=== PATIENT | male | born 1950 | race Caucasian/White ===

== ENCOUNTER 2021-12-19 18:59 | Observation (INO) ==
[2021-12-19 21:37] LABS: Basophils % 0.2 %; Eosinophils # 0.6 K/mcL (0.0-0.6); Eosinophils % 4.4 %; Hematocrit 39.2 % (37.5-50.1); Hemoglobin 12.9 g/dL (12.9-16.9); Immature Granulocytes % 1.1 % (0-4); Lymphocytes # 0.9 K/mcL (0.6-4.6); Lymphocytes % 7.4 %; Mean Corpuscular HGB Conc 32.9 g/dL (31.6-35.5); Mean Corpuscular Hemoglobin 30.4 pg (28.0-33.3); Mean Corpuscular Volume 92.5 fL (83.0-100.0); Mean Platelet Volume 10.1 fL (9.4-12.4); Monocytes # 0.8 K/mcL (0.0-1.3); Neutrophils # 10.2 K/mcL (1.6-8.9); Nucleated Red Blood Cells 0.6 /100 WBC (0); Platelet Count 309 K/mcL (140-400); Red Blood Count 4.24 M/mcL (4.19-5.50); Red Cell Distribution Width 15.9 % (11.5-14.5); Segmented Neutrophils % 80.9 %; White Blood Count 12.6 K/mcL (4.3-11.1)
[2021-12-19 21:55] LABS: Alanine Aminotransferase 16 Units/L (7-52); Albumin/Globulin Ratio 1.5 (1.1-2.2); Alkaline Phosphatase 51 Units/L (34-104); Aspartate Amino Transferase 17 Units/L (13-39); BUN/Creatinine Ratio 24 (6-26); Bilirubin,Total 0.2 mg/dL (0.3-1.0); Blood Urea Nitrogen 33 mg/dL (8-23); Calcium 9.6 mg/dL (8.6-10.3); Carbon Dioxide 19 mEq/L (23-29); Chloride 113 mEq/L (98-107); Globulin 2.7 g/dL (2.4-3.5); Glucose 100 mg/dL (70-105); Osmolality,Calculated 295 (280-300); Potassium 3.7 mEq/L (3.5-5.1); Sodium 139 mEq/L (136-145); Total Protein 6.7 g/dL (6.4-8.9); eGFR For African Americans > 60 (> 60); eGFR For Non-African Americans 50 (> 60)
[2021-12-19] MEDS ORDERED: *HR* HYDROcodone/Acet 5/325 mg TABLET PO PRN (23:04)
[2021-12-19] MEDS ORDERED: Melatonin 3 MG TABLET PO PRN (23:04)
[2021-12-19] MEDS ORDERED: *HR* OxyCODONE Immed Rel 5 MG TABLET PO PRN (23:04)
[2021-12-19] MEDS ORDERED: Naloxone 0.4 MG/ML INJ IVP PRN (23:04)
[2021-12-19] MEDS ORDERED: Ondansetron ODT 4 MG TAB.RAPDIS SL PRN (23:04)
[2021-12-19] MEDS ORDERED: Acetaminophen 325 MG TABLET PO PRN (23:04)
[2021-12-20 04:01] LABS: Alanine Aminotransferase 15 Units/L (7-52); Albumin 3.7 g/dL (3.5-5.7); Albumin/Globulin Ratio 1.5 (1.1-2.2); Alkaline Phosphatase 46 Units/L (34-104); Aspartate Amino Transferase 15 Units/L (13-39); BUN/Creatinine Ratio 24 (6-26); Bilirubin,Total 0.3 mg/dL (0.3-1.0); Blood Urea Nitrogen 30 mg/dL (8-23); Calcium 9.5 mg/dL (8.6-10.3); Carbon Dioxide 17 mEq/L (23-29); Chloride 115 mEq/L (98-107); Globulin 2.4 g/dL (2.4-3.5); Glucose 87 mg/dL (70-105); Magnesium 1.7 mg/dL (1.6-2.6); Osmolality,Calculated 294 (280-300); Phosphorous 3.3 mg/dL (2.7-4.5); Potassium 3.6 mEq/L (3.5-5.1); Sodium 139 mEq/L (136-145); Total Protein 6.1 g/dL (6.4-8.9); eGFR For African Americans > 60 (> 60); eGFR For Non-African Americans 56 (> 60)
[2021-12-20 04:05] LABS: Basophils # 0.1 K/mcL (0.0-0.2); Basophils % 0.4 %; Eosinophils # 0.7 K/mcL (0.0-0.6); Eosinophils % 6.1 %; Hematocrit 34.9 % (37.5-50.1); Hemoglobin 11.9 g/dL (12.9-16.9); Immature Granulocytes % 1.1 % (0-4); Lymphocytes # 1.6 K/mcL (0.6-4.6); Lymphocytes % 12.9 %; Mean Corpuscular HGB Conc 34.1 g/dL (31.6-35.5); Mean Corpuscular Hemoglobin 31.4 pg (28.0-33.3); Mean Corpuscular Volume 92.1 fL (83.0-100.0); Mean Platelet Volume 10.9 fL (9.4-12.4); Monocytes # 1.1 K/mcL (0.0-1.3); Monocytes % 9.1 %; Neutrophils # 8.6 K/mcL (1.6-8.9); Nucleated Red Blood Cells 0.7 /100 WBC (0); Platelet Count 324 K/mcL (140-400); Red Blood Count 3.79 M/mcL (4.19-5.50); Red Cell Distribution Width 15.8 % (11.5-14.5); Segmented Neutrophils % 70.4 %; White Blood Count 12.2 K/mcL (4.3-11.1)
[2021-12-20] MEDS ORDERED: Finasteride 5 MG TABLET PO SCH (09:00)
[2021-12-20] MEDS ORDERED: Aspirin Enteric Coated 81 MG Tablet PO SCH (09:00)
[2021-12-20 11:35] VITALS: BP 132/85; PULSE 67; TEMP 97.8; O2SAT 96
[2021-12-20 12:55] LABS: Bacteria,Urine Few per hpf (None-Few); Bilirubin,Urine Negative (Negative); Blood,Urine Large (Negative); Clarity,Urine Turbid (Clear); Color,Urine Colorless (Yellow); Glucose,Urine (UA) Normal (Normal); Ketones,Urine Negative (Negative); Leukocyte Esterase,Urine Small (Negative); Mucus,Urine Few per lpf (None-Few); Nitrite,Urine Negative (Negative); Protein,Urine 50 mg/dL (Neg-Trace); RBC,Urine TNTC per hpf (0-3); Specific Gravity,Urine 1.011 (1.010-1.025); Urobilinogen,Urine Normal (Normal); WBC,Urine 15-30 per hpf (0-3)
[2021-12-20] MEDS ORDERED: Triamcinolone Acet 0.1% CRM 15 GM TUBE TP PRN (13:07)
[2021-12-20] MEDS ORDERED: Cefdinir 300 MG CAPSULE PO ONE (15:33)
[2021-12-20] MEDS ORDERED: Melatonin 3 MG TABLET PO SCH (21:00)
[2021-12-21] MEDS ORDERED: Nicotine 21 MG PATCH.TD24 TD SCH (09:00)
== END 2021-12-20 15:55 | disposition home or self-care (01) ==
LOC: 3ANU 18:59 → EMEROOARM 18:59 → SUATTDRO 23:36 → 3ANU 12-20 00:17
PROVIDERS: ADMIT Family Medicine; ATTEND Internal Medicine

== ENCOUNTER 2022-06-08 14:41 | Inpatient (IN) ==
[2022-06-08 18:49] LABS: Basophils % 1.1 %; Eosinophils # 0.5 K/mcL (0.0-0.6); Eosinophils % 3.8 %; Hemoglobin 10.7 g/dL (12.9-16.9); Immature Granulocytes % 1.3 % (0-4); Lymphocytes # 0.9 K/mcL (0.6-4.6); Lymphocytes % 6.8 %; Mean Corpuscular HGB Conc 34.5 g/dL (31.6-35.5); Mean Corpuscular Hemoglobin 28.1 pg (28.0-33.3); Mean Corpuscular Volume 81.4 fL (83.0-100.0); Mean Platelet Volume 11.8 fL (9.4-12.4); Monocytes # 1.7 K/mcL (0.0-1.3); Monocytes % 13.1 %; Neutrophils # 9.8 K/mcL (1.6-8.9); Nucleated Red Blood Cells 0.8 /100 WBC (0); Platelet Count 456 K/mcL (140-400); Red Blood Count 3.81 M/mcL (4.19-5.50); Red Cell Distribution Width 23.5 % (11.5-14.5); Segmented Neutrophils % 73.9 %; White Blood Count 13.3 K/mcL (4.3-11.1)
[2022-06-08 18:52] LABS: Basophils # 0.2 K/mcL (0.0-0.2)
[2022-06-08 19:26] LABS: Anisocytosis 1+ (Not Present); Hypochromasia Present (Not Present); Polychromasia 1+ (Not Present); Stomatocytes 2+ (Not Present)
[2022-06-08 19:28] LABS: Platelet Estimate Normal (Normal)
[2022-06-08 19:35] LABS: Alanine Aminotransferase 349 Units/L (7-52); Albumin 3.4 g/dL (3.5-5.7); Albumin/Globulin Ratio 0.9 (1.1-2.2); Alkaline Phosphatase 1120 Units/L (34-104); Aspartate Amino Transferase 610 Units/L (13-39); BUN/Creatinine Ratio 15 (6-26); Bilirubin,Direct 3.9 mg/dL (0.0-0.2); Bilirubin,Indirect 2.8 mg/dL (0.0-1.0); Bilirubin,Total 6.7 mg/dL (0.3-1.0); Blood Urea Nitrogen 19 mg/dL (8-23); Calcium 9.5 mg/dL (8.6-10.3); Carbon Dioxide 17 mEq/L (23-29); Chloride 108 mEq/L (98-107); Globulin 3.7 g/dL (2.4-3.5); Glucose 117 mg/dL (70-105); Lipase 245 Units/L (11-82); Osmolality,Calculated 287 (280-300); Potassium 3.2 mEq/L (3.5-5.1); Sodium 137 mEq/L (136-145); Total Protein 7.1 g/dL (6.4-8.9); Troponin I 0.08 ng/mL (< 0.04); eGFR For African Americans > 60 (> 60); eGFR For Non-African Americans 57 (> 60)
[2022-06-08] MEDS ORDERED: Iopamidol - 370 500 ML MLS IVP ONE (19:51)
[2022-06-08 19:57] LABS: Amorphous Sediment,Urine Few per hpf (None-Few); Bacteria,Urine Few per hpf (None-Few); Bilirubin,Urine Small (Negative); Blood,Urine Large (Negative); Clarity,Urine Turbid (Clear); Color,Urine Dark-Yellow (Yellow); Glucose,Urine (UA) Normal (Normal); Ketones,Urine Negative (Negative); Leukocyte Esterase,Urine Negative (Negative); Mucus,Urine Few per lpf (None-Few); Nitrite,Urine Negative (Negative); Protein,Urine 100 mg/dL (Neg-Trace); RBC,Urine 0-3 per hpf (0-3); Specific Gravity,Urine 1.021 (1.010-1.025)
[2022-06-08 20:51] LABS: INR 1.3; Prothrombin Time 14.3 Seconds (9.4-12.1)
[2022-06-08 20:54] LABS: Activated Partial Thrombo Time 34.4 Seconds (26.0-36.0)
[2022-06-08] MEDS ORDERED: cefTRIAXone 1,000 MG in Water for inj. (sterile) 10 ML IVP ONE (21:10)
[2022-06-09] MEDS ORDERED: Melatonin 3 MG TABLET PO PRN (03:29)
[2022-06-09] MEDS ORDERED: Naloxone 0.4 MG/ML INJ IVP PRN (03:29)
[2022-06-09] MEDS ORDERED: Ondansetron 4 MG/2 ML VIAL IVP PRN (03:29)
[2022-06-09] MEDS: 0.9 % Sodium Chloride 1,000 ML IVC SCH ×3 (06:19→21:35)
[2022-06-09 06:22] LABS: Basophils # 0.2 K/mcL (0.0-0.2); Basophils % 1.1 %; Eosinophils # 0.8 K/mcL (0.0-0.6); Eosinophils % 5.9 %; Hematocrit 25.5 % (37.5-50.1); Immature Granulocytes % 1.2 % (0-4); Lymphocytes % 7.5 %; Mean Corpuscular HGB Conc 34.9 g/dL (31.6-35.5); Mean Corpuscular Hemoglobin 28.2 pg (28.0-33.3); Mean Corpuscular Volume 80.7 fL (83.0-100.0); Mean Platelet Volume 12.1 fL (9.4-12.4); Monocytes # 1.9 K/mcL (0.0-1.3); Monocytes % 13.7 %; Neutrophils # 9.5 K/mcL (1.6-8.9); Nucleated Red Blood Cells 0.7 /100 WBC (0); Platelet Count 417 K/mcL (140-400); Red Blood Count 3.16 M/mcL (4.19-5.50); Red Cell Distribution Width 22.6 % (11.5-14.5); Segmented Neutrophils % 70.6 %; White Blood Count 13.5 K/mcL (4.3-11.1)
[2022-06-09 06:35] LABS: INR 1.3
[2022-06-09 06:37] LABS: Hemoglobin 8.9 g/dL (12.9-16.9)
[2022-06-09 06:38] LABS: Activated Partial Thrombo Time 32.1 Seconds (26.0-36.0)
[2022-06-09 06:43] LABS: Troponin I 0.06 ng/mL (< 0.04)
[2022-06-09 06:45] LABS: Alanine Aminotransferase 289 Units/L (7-52); Albumin 2.9 g/dL (3.5-5.7); Alkaline Phosphatase 849 Units/L (34-104); Aspartate Amino Transferase 551 Units/L (13-39); BUN/Creatinine Ratio 17 (6-26); Bilirubin,Indirect 2.3 mg/dL (0.0-1.0); Bilirubin,Total 5.3 mg/dL (0.3-1.0); Blood Urea Nitrogen 20 mg/dL (8-23); Calcium 8.7 mg/dL (8.6-10.3); Carbon Dioxide 17 mEq/L (23-29); Chloride 112 mEq/L (98-107); Chol/HDL Ratio 13.7 (0-4.9); Cholesterol 233 mg/dL (< 200); Globulin 2.8 g/dL (2.4-3.5); Glucose 82 mg/dL (70-105); HDL Cholesterol 17 mg/dL (40-59); LDL Cholesterol,Calculated 203 mg/dL (< 100); Magnesium 1.8 mg/dL (1.6-2.6); Osmolality,Calculated 286 (280-300); Phosphorous 3.4 mg/dL (2.7-4.5); Potassium 3.3 mEq/L (3.5-5.1); Sodium 137 mEq/L (136-145); Total Protein 5.7 g/dL (6.4-8.9); Triglycerides 65 mg/dL (< 150); eGFR For African Americans > 60 (> 60); eGFR For Non-African Americans > 60 (> 60)
[2022-06-09] MEDS: cefTRIAXone 1,000 MG in 0.9 % Sodium Chloride 10 ML IVP SCH (08:23)
[2022-06-09] MEDS ORDERED: *HR* Metoprolol 5 MG/5 ML VIAL IVP ONE (17:38)
[2022-06-10 01:57] LABS: Hematocrit 23.1 % (37.5-50.1); Hemoglobin 7.8 g/dL (12.9-16.9); Mean Corpuscular HGB Conc 33.8 g/dL (31.6-35.5); Mean Corpuscular Volume 82.8 fL (83.0-100.0); Mean Platelet Volume 12.7 fL (9.4-12.4); Platelet Count 377 K/mcL (140-400); Red Blood Count 2.79 M/mcL (4.19-5.50); Red Cell Distribution Width 23.1 % (11.5-14.5)
[2022-06-10 01:59] LABS: INR 1.3; Prothrombin Time 14.5 Seconds (9.4-12.1)
[2022-06-10 04:01] LABS: Alanine Aminotransferase 258 Units/L (7-52); Albumin 2.6 g/dL (3.5-5.7); Alkaline Phosphatase 788 Units/L (34-104); Aspartate Amino Transferase 534 Units/L (13-39); BUN/Creatinine Ratio 20 (6-26); Bilirubin,Direct 2.4 mg/dL (0.0-0.2); Bilirubin,Indirect 1.8 mg/dL (0.0-1.0); Bilirubin,Total 4.2 mg/dL (0.3-1.0); Blood Urea Nitrogen 24 mg/dL (8-23); Calcium 8.5 mg/dL (8.6-10.3); Carbon Dioxide 14 mEq/L (23-29); Chloride 115 mEq/L (98-107); Globulin 2.7 g/dL (2.4-3.5); Glucose 81 mg/dL (70-105); Magnesium 1.6 mg/dL (1.6-2.6); Osmolality,Calculated 285 (280-300); Phosphorous 3.1 mg/dL (2.7-4.5); Potassium 3.8 mEq/L (3.5-5.1); Sodium 136 mEq/L (136-145); Total Protein 5.3 g/dL (6.4-8.9); eGFR For African Americans > 60 (> 60); eGFR For Non-African Americans 59 (> 60)
[2022-06-10] MEDS: 0.9 % Sodium Chloride 1,000 ML IVC SCH (06:17)
[2022-06-10] MEDS ORDERED: *HR* FentaNYL (PF) 100 MCG/2 ML VIAL ONE (07:43)
[2022-06-10] MEDS ORDERED: *HR* Midazolam HCl 2 MG/2 ML VIAL ONE (07:43)
[2022-06-10] MEDS ORDERED: Lidocaine HCL 4 ML Topical Solution (Laryng-O-Jet Kit Sterile Pak) TP ONE (07:44)
[2022-06-10] MEDS ORDERED: *HR* Propofol 200 MG/20 ML VIAL IVP ONE (07:44)
[2022-06-10] MEDS ORDERED: *HR* Succinylcholine 200 MG/10 ML VIAL IVP ONE (07:44)
[2022-06-10] MEDS ORDERED: *HR* Rocuronium Bromide 50 MG/5 ML VIAL ONE (07:44)
[2022-06-10] MEDS ORDERED: Lidocaine -MPF 2% 5 ML VIAL ONE (07:44)
[2022-06-10] MEDS ORDERED: Ondansetron 4 MG/2 ML VIAL ONE (07:44)
[2022-06-10] MEDS ORDERED: Indomethacin 50 MG SUPP.RECT RC ONE (09:11)
[2022-06-10] MEDS ORDERED: Sugammadex Sodium 200 MG/2 ML VIAL IV ONE (09:37)
[2022-06-10] MEDS ORDERED: *HR* Etomidate 40 MG/20 ML VIAL IVP ONE (10:12)
[2022-06-10] MEDS: cefTRIAXone 1,000 MG in 0.9 % Sodium Chloride 10 ML IVP SCH (11:11)
[2022-06-10] MEDS: Sodium Bicarbonate 75 MEQ in 0.45 % Sodium Chloride 1,000 ML IVC SCH ×2 (11:17→23:21)
[2022-06-10] MEDS: Melatonin 3 MG TABLET PO SCH (20:20)
[2022-06-10] MEDS: Finasteride 5 MG TABLET PO SCH (20:22)
[2022-06-11] MEDS ORDERED: Albumin 25% 25gram/100mL 25 GM/100 ML IV.SOLN IVPB ONE ×2 (00:52→03:44)
[2022-06-11 01:40] LABS: Basophils % 0.3 %; Hematocrit 21.6 % (37.5-50.1); Hemoglobin 7.4 g/dL (12.9-16.9); Immature Granulocytes % 1.1 % (0-4); Lymphocytes # 0.6 K/mcL (0.6-4.6); Lymphocytes % 5.2 %; Mean Corpuscular HGB Conc 34.3 g/dL (31.6-35.5); Mean Corpuscular Hemoglobin 28.2 pg (28.0-33.3); Mean Corpuscular Volume 82.4 fL (83.0-100.0); Monocytes # 1.2 K/mcL (0.0-1.3); Monocytes % 10.9 %; Neutrophils # 9.4 K/mcL (1.6-8.9); Nucleated Red Blood Cells 1.9 /100 WBC (0); Platelet Count 340 K/mcL (140-400); Red Blood Count 2.62 M/mcL (4.19-5.50); Red Cell Distribution Width 22.3 % (11.5-14.5); Segmented Neutrophils % 82.5 %; White Blood Count 11.3 K/mcL (4.3-11.1)
[2022-06-11 02:02] LABS: Alanine Aminotransferase 239 Units/L (7-52); Albumin 2.5 g/dL (3.5-5.7); Alkaline Phosphatase 688 Units/L (34-104); Aspartate Amino Transferase 461 Units/L (13-39); BUN/Creatinine Ratio 20 (6-26); Bilirubin,Total 3.6 mg/dL (0.3-1.0); Blood Urea Nitrogen 27 mg/dL (8-23); Calcium 8.3 mg/dL (8.6-10.3); Carbon Dioxide 17 mEq/L (23-29); Chloride 109 mEq/L (98-107); Globulin 2.6 g/dL (2.4-3.5); Glucose 142 mg/dL (70-105); Magnesium 1.5 mg/dL (1.6-2.6); Osmolality,Calculated 284 (280-300); Phosphorous 3.2 mg/dL (2.7-4.5); Potassium 3.8 mEq/L (3.5-5.1); Sodium 133 mEq/L (136-145); Total Protein 5.1 g/dL (6.4-8.9); eGFR For African Americans > 60 (> 60); eGFR For Non-African Americans 52 (> 60)
[2022-06-11 02:05] LABS: % Iron Saturation 70 % (20-55); Iron 166 mcg/dL (65-175); Transferrin 170 mg/dL (203-362)
[2022-06-11 02:23] LABS: Ferritin 651 ng/mL (20-250)
[2022-06-11 02:29] LABS: Folate 10.3 ng/mL (3.0-16.0)
[2022-06-11] MEDS: cefTRIAXone 1,000 MG in 0.9 % Sodium Chloride 10 ML IVP SCH (08:03)
[2022-06-11 10:40] LABS: Hepatitis B Surface Antigen Nonreactive (Nonreactive)
[2022-06-11 11:10] LABS: Hepatitis A Antibody IgM Nonreactive (Nonreactive); Hepatitis C Virus Antibody Nonreactive (Nonreactive)
[2022-06-11 11:11] LABS: Hepatitis B Core IgM Nonreactive (Nonreactive)
[2022-06-11] MEDS ORDERED: Ondansetron 4 MG/2 ML VIAL IVP PRN (12:21)
[2022-06-11] MEDS ORDERED: Promethazine 6.25 MG in Water for inj. (sterile) 20 ML IVPB PRN (12:21)
[2022-06-11] MEDS ORDERED: *HR* OxyCODONE Immed Rel 5 MG TABLET PO PRN (12:21)
[2022-06-11] MEDS ORDERED: *HR* HYDROmorphone PF 0.5 MG/0.5 ML SYRINGE IVP PRN (12:21)
[2022-06-11] MEDS ORDERED: *HR* Succinylcholine 200 MG/10 ML VIAL IVP ONE (13:24)
[2022-06-11] MEDS ORDERED: *HR* FentaNYL (PF) 100 MCG/2 ML VIAL ONE (13:24)
[2022-06-11] MEDS ORDERED: Lidocaine -MPF 2% 5 ML VIAL ONE (13:24)
[2022-06-11] MEDS ORDERED: Lidocaine HCL 4 ML Topical Solution (Laryng-O-Jet Kit Sterile Pak) TP ONE (13:24)
[2022-06-11] MEDS ORDERED: Ondansetron 4 MG/2 ML VIAL ONE (13:24)
[2022-06-11] MEDS ORDERED: *HR* Propofol 200 MG/20 ML VIAL IVP ONE (13:25)
[2022-06-11] MEDS ORDERED: CefOXitin 2,000 MG VIAL ONE (14:18)
[2022-06-11] MEDS: Sodium Bicarbonate 75 MEQ in 0.45 % Sodium Chloride 1,000 ML IVC SCH ×3 (17:49→18:05)
[2022-06-11] MEDS: Melatonin 3 MG TABLET PO SCH (20:54)
[2022-06-11] MEDS: Finasteride 5 MG TABLET PO SCH (20:54)
[2022-06-12 01:56] LABS: Hematocrit 22.9 % (37.5-50.1); Hemoglobin 7.8 g/dL (12.9-16.9); Mean Corpuscular HGB Conc 34.1 g/dL (31.6-35.5); Mean Corpuscular Hemoglobin 28.5 pg (28.0-33.3); Mean Corpuscular Volume 83.6 fL (83.0-100.0); Mean Platelet Volume 12.2 fL (9.4-12.4); Platelet Count 324 K/mcL (140-400); Red Blood Count 2.74 M/mcL (4.19-5.50); White Blood Count 11.5 K/mcL (4.3-11.1)
[2022-06-12 02:17] LABS: Alanine Aminotransferase 275 Units/L (7-52); Albumin/Globulin Ratio 1.4 (1.1-2.2); Alkaline Phosphatase 694 Units/L (34-104); Aspartate Amino Transferase 462 Units/L (13-39); BUN/Creatinine Ratio 23 (6-26); Bilirubin,Total 3.9 mg/dL (0.3-1.0); Blood Urea Nitrogen 27 mg/dL (8-23); Calcium 8.3 mg/dL (8.6-10.3); Carbon Dioxide 18 mEq/L (23-29); Chloride 109 mEq/L (98-107); Globulin 2.2 g/dL (2.4-3.5); Glucose 95 mg/dL (70-105); Osmolality,Calculated 287 (280-300); Potassium 4.2 mEq/L (3.5-5.1); Sodium 136 mEq/L (136-145); Total Protein 5.2 g/dL (6.4-8.9); eGFR For African Americans > 60 (> 60); eGFR For Non-African Americans > 60 (> 60)
[2022-06-12] MEDS: Sodium Bicarbonate 75 MEQ in 0.45 % Sodium Chloride 1,000 ML IVC SCH ×2 (04:58→22:53)
[2022-06-12] MEDS: cefTRIAXone 1,000 MG in 0.9 % Sodium Chloride 10 ML IVP SCH (08:23)
[2022-06-12] MEDS ORDERED: *HR* Propofol 200 MG/20 ML VIAL IVP ONE (10:48)
[2022-06-12] MEDS ORDERED: *HR* FentaNYL (PF) 100 MCG/2 ML VIAL ONE (10:48)
[2022-06-12] MEDS ORDERED: Ondansetron 4 MG/2 ML VIAL ONE (10:50)
[2022-06-12] MEDS ORDERED: *HR* Rocuronium Bromide 50 MG/5 ML VIAL ONE (10:50)
[2022-06-12] MEDS ORDERED: Lidocaine HCL 4 ML Topical Solution (Laryng-O-Jet Kit Sterile Pak) TP ONE (10:50)
[2022-06-12] MEDS ORDERED: Lidocaine -MPF 2% 5 ML VIAL ONE (10:50)
[2022-06-12] MEDS ORDERED: EPHEDrine 50 MG/ML VIAL ONE (11:12)
[2022-06-12] MEDS ORDERED: Sugammadex Sodium 200 MG/2 ML VIAL IV ONE (11:53)
[2022-06-12] MEDS ORDERED: *HR* HYDROmorphone (PF) 1 MG/ML SYRINGE ONE (12:25)
[2022-06-12] MEDS: *HR* HYDROmorphone (PF) 1 MG/ML SYRINGE IVP PRN ×2 (12:26→12:35)
[2022-06-12] MEDS ORDERED: *HR* OxyCODONE/APAP 5/325 TABLET PO PRN (13:27)
[2022-06-12] MEDS ORDERED: Naloxone 0.4 MG/ML INJ IVP PRN (13:27)
[2022-06-12] MEDS ORDERED: Melatonin 3 MG TABLET PO PRN (13:27)
[2022-06-12] MEDS ORDERED: Ondansetron 4 MG/2 ML VIAL IVP PRN (13:27)
[2022-06-12] MEDS: Finasteride 5 MG TABLET PO SCH (20:16)
[2022-06-12] MEDS: Melatonin 3 MG TABLET PO SCH (20:16)
[2022-06-13 01:40] LABS: Basophils % 0.1 %; Hematocrit 22.2 % (37.5-50.1); Hemoglobin 7.7 g/dL (12.9-16.9); Lymphocytes # 0.6 K/mcL (0.6-4.6); Lymphocytes % 2.6 %; Mean Corpuscular HGB Conc 34.7 g/dL (31.6-35.5); Mean Corpuscular Hemoglobin 28.4 pg (28.0-33.3); Mean Corpuscular Volume 81.9 fL (83.0-100.0); Monocytes % 9.4 %; Neutrophils # 18.9 K/mcL (1.6-8.9); Nucleated Red Blood Cells 1.9 /100 WBC (0); Platelet Count 315 K/mcL (140-400); Red Blood Count 2.71 M/mcL (4.19-5.50); Red Cell Distribution Width 22.5 % (11.5-14.5); Segmented Neutrophils % 86.9 %
[2022-06-13 01:49] LABS: White Blood Count 21.7 K/mcL (4.3-11.1)
[2022-06-13 02:02] LABS: Alanine Aminotransferase 428 Units/L (7-52); Albumin 2.8 g/dL (3.5-5.7); Albumin/Globulin Ratio 1.2 (1.1-2.2); Alkaline Phosphatase 619 Units/L (34-104); Aspartate Amino Transferase 602 Units/L (13-39); BUN/Creatinine Ratio 22 (6-26); Bilirubin,Total 3.3 mg/dL (0.3-1.0); Blood Urea Nitrogen 25 mg/dL (8-23); Calcium 8.4 mg/dL (8.6-10.3); Carbon Dioxide 21 mEq/L (23-29); Chloride 104 mEq/L (98-107); Globulin 2.3 g/dL (2.4-3.5); Glucose 110 mg/dL (70-105); Osmolality,Calculated 283 (280-300); Potassium 3.9 mEq/L (3.5-5.1); Sodium 134 mEq/L (136-145); Total Protein 5.1 g/dL (6.4-8.9); eGFR For African Americans > 60 (> 60); eGFR For Non-African Americans > 60 (> 60)
[2022-06-13 02:11] LABS: Anisocytosis 2+ (Not Present); Platelet Estimate Normal (Normal); Poikilocytosis 2+ (Not Present); Target Cells 2+ (Not Present)
[2022-06-13] MEDS: Sodium Bicarbonate 75 MEQ in 0.45 % Sodium Chloride 1,000 ML IVC SCH (07:15)
[2022-06-13] MEDS: cefTRIAXone 1,000 MG in 0.9 % Sodium Chloride 10 ML IVP SCH (08:12)
[2022-06-13] MEDS ORDERED: *HR* Metoprolol 5 MG/5 ML VIAL IVP PRN (13:17)
[2022-06-13 13:58] LABS: Magnesium 1.8 mg/dL (1.6-2.6)
[2022-06-13] MEDS ORDERED: 0.9 % Sodium Chloride 250 ML IVC SCH (14:30)
[2022-06-13] MEDS: DilTIAZem 50 MG/50 ML IV.SOLN IVC SCH ×2 (15:23→21:03)
[2022-06-13] MEDS ORDERED: 0.9 % Sodium Chloride 1,000 ML IVC ONE (15:39)
[2022-06-13] MEDS ORDERED: *HR* Digoxin 0.5 MG/2 ML AMPUL IVP ONE (16:23)
[2022-06-13] MEDS ORDERED: Perflutren Lipid Microsphere 1.3 ML in 0.9 % Sodium Chloride 8.7 ML IVP PRN (17:28)
[2022-06-13] MEDS ORDERED: Iopamidol - 370 500 ML MLS IVP ONE ×2 (17:31→18:52)
[2022-06-13] MEDS ORDERED: *HR* Heparin 5,000 UNIT/ML VIAL IVP ONE (17:32)
[2022-06-13] MEDS ORDERED: *HR* Heparin 5,000 UNIT/ML VIAL IVP PRN ×2 (17:32)
[2022-06-13] MEDS ORDERED: Heparin 25,000UNIT/250ML 1/2NS 25,000 UNIT/250 ML IV.SOLN IVC SCH (17:45)
[2022-06-13 18:33] LABS: Mean Corpuscular Hemoglobin 28.3 pg (28.0-33.3)
[2022-06-13 18:34] LABS: Hemoglobin 10.2 g/dL (12.9-16.9); Immature Platelets 17.3 % (1.1-6.1); Mean Corpuscular HGB Conc 32.9 g/dL (31.6-35.5); Mean Corpuscular Volume 86.1 fL (83.0-100.0); Platelet Count 314 K/mcL (140-400); Red Cell Distribution Width 24.5 % (11.5-14.5); White Blood Count 18.4 K/mcL (4.3-11.1)
[2022-06-13 18:40] LABS: Heparin anti-factor XA UFH 0.06 IU/mL (0.30-0.70); INR 1.1; Prothrombin Time 12.5 Seconds (9.4-12.1)
[2022-06-13 18:44] LABS: Troponin I 0.05 ng/mL (< 0.04)
[2022-06-13 19:11] LABS: Thyroid Stimulating Hormone 2.581 mcIU/mL (0.340-5.600)
[2022-06-13] MEDS: Finasteride 5 MG TABLET PO SCH (20:27)
[2022-06-13] MEDS: Melatonin 3 MG TABLET PO SCH (20:28)
[2022-06-14 02:12] LABS: Heparin anti-factor XA UFH 0.74 IU/mL (0.30-0.70)
[2022-06-14 02:13] LABS: Basophils % 0.2 %; Eosinophils # 0.1 K/mcL (0.0-0.6); Eosinophils % 0.6 %; Hematocrit 24.1 % (37.5-50.1); INR 1.2; Immature Granulocytes % 1.5 % (0-4); Lymphocytes # 1.3 K/mcL (0.6-4.6); Lymphocytes % 7.5 %; Mean Corpuscular HGB Conc 33.6 g/dL (31.6-35.5); Mean Corpuscular Hemoglobin 27.9 pg (28.0-33.3); Mean Corpuscular Volume 83.1 fL (83.0-100.0); Mean Platelet Volume 12.1 fL (9.4-12.4); Monocytes # 1.5 K/mcL (0.0-1.3); Monocytes % 8.4 %; Nucleated Red Blood Cells 3.3 /100 WBC (0); Platelet Count 283 K/mcL (140-400); Prothrombin Time 13.9 Seconds (9.4-12.1); Red Cell Distribution Width 23.2 % (11.5-14.5); Segmented Neutrophils % 81.8 %; White Blood Count 17.4 K/mcL (4.3-11.1)
[2022-06-14 02:20] LABS: Hemoglobin 8.1 g/dL (12.9-16.9); Neutrophils # 14.2 K/mcL (1.6-8.9)
[2022-06-14 02:26] LABS: Alanine Aminotransferase 370 Units/L (7-52); Albumin 2.8 g/dL (3.5-5.7); Albumin/Globulin Ratio 1.3 (1.1-2.2); Alkaline Phosphatase 638 Units/L (34-104); Aspartate Amino Transferase 435 Units/L (13-39); BUN/Creatinine Ratio 17 (6-26); Bilirubin,Total 3.1 mg/dL (0.3-1.0); Blood Urea Nitrogen 17 mg/dL (8-23); Calcium 7.8 mg/dL (8.6-10.3); Carbon Dioxide 22 mEq/L (23-29); Chloride 103 mEq/L (98-107); Globulin 2.1 g/dL (2.4-3.5); Glucose 89 mg/dL (70-105); Osmolality,Calculated 275 (280-300); Potassium 3.5 mEq/L (3.5-5.1); Sodium 132 mEq/L (136-145); Total Protein 4.9 g/dL (6.4-8.9); eGFR For African Americans > 60 (> 60); eGFR For Non-African Americans > 60 (> 60)
[2022-06-14 02:53] LABS: Anisocytosis 3+ (Not Present); Hypochromasia Present (Not Present); Polychromasia 1+ (Not Present)
[2022-06-14 02:54] LABS: Platelet Estimate Normal (Normal); Target Cells 2+ (Not Present)
[2022-06-14 02:55] LABS: Large Platelets Present (Not Present)
[2022-06-14] MEDS: DilTIAZem 50 MG/50 ML IV.SOLN IVC SCH (03:41)
[2022-06-14] MEDS: Aspirin Enteric Coated 81 MG Tablet PO SCH (08:04)
[2022-06-14] MEDS: cefTRIAXone 1,000 MG in 0.9 % Sodium Chloride 10 ML IVP SCH (08:04)
[2022-06-14 08:12] LABS: Troponin I 0.05 ng/mL (< 0.04)
[2022-06-14] MEDS ORDERED: 0.9 % Sodium Chloride 500 ML IV ONE (08:47)
[2022-06-14] MEDS ORDERED: polyethylene glycoL 3350 17 GM POWD.PACK PO PRN (12:45)
[2022-06-14] MEDS ORDERED: Warfarin perPT PO PRN (18:00)
[2022-06-14 18:04] LABS: Hematocrit 24.9 % (37.5-50.1); Hemoglobin 8.4 g/dL (12.9-16.9)
[2022-06-14] MEDS ORDERED: *HR* Warfarin 2.5 MG TABLET PO ONE (20:00)
[2022-06-14] MEDS: Melatonin 3 MG TABLET PO SCH (21:17)
[2022-06-14] MEDS: Finasteride 5 MG TABLET PO SCH (21:17)
[2022-06-15 07:21] LABS: Mean Corpuscular Hemoglobin 28.2 pg (28.0-33.3)
[2022-06-15 07:30] LABS: Hematocrit 24.5 % (37.5-50.1); Hemoglobin 8.3 g/dL (12.9-16.9); Immature Platelets 17.2 % (1.1-6.1); Mean Corpuscular HGB Conc 33.9 g/dL (31.6-35.5); Mean Corpuscular Volume 83.3 fL (83.0-100.0); Mean Platelet Volume 13.4 fL (9.4-12.4); Red Blood Count 2.94 M/mcL (4.19-5.50); Red Cell Distribution Width 23.2 % (11.5-14.5); White Blood Count 16.2 K/mcL (4.3-11.1)
[2022-06-15 07:31] LABS: Heparin anti-factor XA UFH 0.45 IU/mL (0.30-0.70); INR 1.1; Prothrombin Time 12.4 Seconds (9.4-12.1)
[2022-06-15 07:35] LABS: Alanine Aminotransferase 309 Units/L (7-52); Albumin 2.9 g/dL (3.5-5.7); Albumin/Globulin Ratio 1.2 (1.1-2.2); Alkaline Phosphatase 676 Units/L (34-104); Aspartate Amino Transferase 359 Units/L (13-39); BUN/Creatinine Ratio 16 (6-26); Blood Urea Nitrogen 15 mg/dL (8-23); Calcium 8.4 mg/dL (8.6-10.3); Carbon Dioxide 22 mEq/L (23-29); Chloride 100 mEq/L (98-107); Globulin 2.4 g/dL (2.4-3.5); Glucose 82 mg/dL (70-105); Magnesium 1.9 mg/dL (1.6-2.6); Osmolality,Calculated 272 (280-300); Potassium 3.4 mEq/L (3.5-5.1); Sodium 131 mEq/L (136-145); Total Protein 5.3 g/dL (6.4-8.9); eGFR For African Americans > 60 (> 60); eGFR For Non-African Americans > 60 (> 60)
[2022-06-15] MEDS: cefTRIAXone 1,000 MG in 0.9 % Sodium Chloride 10 ML IVP SCH (09:05)
[2022-06-15] MEDS ORDERED: Furosemide 20 MG/2 ML VIAL IVP ONE (10:43)
[2022-06-15] MEDS: Aspirin Enteric Coated 81 MG Tablet PO SCH (11:15)
[2022-06-15 12:05] VITALS: BP 148/77; PULSE 59; TEMP 97.7; O2SAT 100
[2022-06-15] MEDS ORDERED: *HR* Warfarin 2.5 MG TABLET PO ONE (18:00)
== END 2022-06-15 17:00 | disposition home health service (06) | DRG 417 ==
LOC: EMEROOARM 14:41 → 3BNU 14:41 → SUATTDRO 06-09 12:58 → 3BNU 06-09 14:46 → SUATTDRO 06-10 08:06 → 2NENU 06-13 19:42
PROVIDERS: ADMIT General Practice; ATTEND Internal Medicine
PROC: ENDOEUS (2022-06-10 09:00)